=== PATIENT | female | born 1985 | race Caucasian/White ===

== ENCOUNTER 2016-11-16 19:24 | Emergency (ER) | payer OTHER ==
[2016-11-16] MEDS ORDERED: Aspirin Low Dose CHEW TAB* 81 MG PO ONE (22:17)
[2016-11-16 22:33] LABS: Hematocrit 40 % (35-47); Hemoglobin 13.2 g/dl (12.0-16.0); Mean Corpuscular HGB Conc 33 g/dl (31-36); Mean Corpuscular Hemoglobin 29 pg (27-31); Mean Corpuscular Volume 88 fL (80-97); Mean Platelet Volume 9 um3 (7.4-10.4); Red Blood Count 4.51 10^6/ul (4.0-5.4); Red Cell Distribution Width 13 % (10.5-15); White Blood Count 7.9 10^3/ul (3.5-10.8)
[2016-11-16 22:44] LABS: Albumin 4.6 g/dL (3.2-5.2); BUN/Creatinine Ratio 11.8 (8-20); Calcium 9.9 mg/dL (8.6-10.3); EGFR African American 128.2 (>60); EGFR Non-African American 99.6 (>60); Globulin 2.7 g/dL (2-4); Potassium 3.9 mmol/L (3.5-5.0); Total Bilirubin 0.4 mg/dL (0.2-1.0); Total Protein 7.3 g/dL (6.4-8.9)
[2016-11-17] MEDS ORDERED: methylPREDNISolone 125 MG* 2 ML VIAL IV ONE (01:22)
[2016-11-17] MEDS ORDERED: Albuterol 2.5 MG/3 ML NEB.SOL* (0.083%) INH ONE (01:22)
[2016-11-17 02:38] VITALS: BP 118/74
--- NOTE | 2016-11-17 07:38 | RAD ---
INDICATION: Cough, right lower lobe abnormal breath sounds. COMPARISON: Comparison is made with a prior chest x-ray study from May 22, 2016. TECHNIQUE: Dual-energy PA and lateral views of the chest were obtained. FINDINGS: The heart is within normal limits in size. Mediastinal and hilar contours appear within normal limits. The lungs are clear. No pleural effusion is present. IMPRESSION: NO EVIDENCE FOR ACTIVE CARDIOPULMONARY DISEASE.
--- NOTE | 2016-11-29 23:57 | ED ---
Elmo Sanchez SooYoung, scribed for Garry Lanza MD on 11/16/16 at 2219 . Palpitations / Dysrhythmia - HPI Summary HPI Summary: A 31 y/o F presents to ED with c/o acute on chronic episodes of chest palpitations throughout today. Associated mild SOB, mild midline CP, L-sided frontal FUENTES, mild dizziness, mild productive green cough, mild rhinorrhea. Pt recently had PNA with productive green cough. She took her 5-day course of ABX and was feeling better. Pt was seen at [facility] today who referred her to ED and gave her a 10-day course of Doxy. She had a CXR done there, and they said it was nml. Pert PMHx: abnormal EKG with PAC and PVC. Not on BC. Denies asthma. - History of Current Complaint Chief Complaint: EDDysrhythmPalp Time Seen by Provider: 11/16/16 22:14 Hx Obtained From: Patient, Family/Railway Engineer - cousin Onset/Duration: Still Present Character: Irregular Associated Signs & Symptoms: Dizzy - mild, Chest Pain, Shortness of Breath - mild - Allergy/Home Medications Allergies/Adverse Reactions: Allergies Allergy/AdvReac Type Severity Reaction Status Date / Time No Known Allergies Allergy Verified 05/22/16 21:24 PMH/Surg Hx/FS Hx/Imm Hx Previously Healthy: Yes Endocrine/Hematology History: Denies: Hx Diabetes, Hx Thyroid Disease Cardiovascular History: Denies: Hx Congestive Heart Failure, Hx Deep Vein Thrombosis, Hx Hypertension , Hx Myocardial Infarction, Hx Pacemaker/ICD Respiratory History: Denies: Hx Asthma, Hx Chronic Obstructive Pulmonary Disease (COPD), Hx Lung Cancer, Hx Pneumonia, Hx Pulmonary Embolism GI History: Denies: Hx Gall Bladder Disease, Hx Gastrointestinal Bleed, Hx Ulcer, Hx Urosepsis History: Denies: Hx Kidney Stones, Hx Renal Disease Neurological History: Denies: Hx Dementia, Hx Migraine, Hx Seizures, Hx Transient Ischemic Attacks (TIA) Psychiatric History: Denies: Hx Anxiety, Hx Depression, Hx Schizophrenia, Hx Bipolar Disorder - Cancer History Cancer Type, 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 Hx Chemotherapy: No Hx Radiation Therapy: No - Immunization History Date of Tetanus Vaccine: pt states doesnt know Date of Influenza Vaccine: 2011 Infectious Disease History: No Infectious Disease History: Denies: Hx Clostridium Difficile, Hx Hepatitis, Hx Human Immunodeficiency Virus (HIV), Hx of Known/Suspected MRSA, Hx Shingles, Hx Tuberculosis, Hx Known/ Suspected VRE, Hx Known/Suspected VRSA, History Other Infectious Disease, Traveled Outside the [place] in Last 30 Days - Family History Known Family History: Positive: Other - neg: family breast [place] - Social History 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 Negative: Sore Throat Positive: Palpitations, Chest Pain Positive: Shortness Of Breath - mild, Cough - mild, productive - green sputum Negative: Abdominal Pain, Vomiting, Nausea Negative: dysuria, hematuria Negative: Myalgia, Edema Negative: Rash Neurological: Other - pos: mild dizziness Positive: Headache - L frontal All Other Systems Reviewed And Are Negative: Yes Physical Exam - Summary Physical Exam Summary: Constitutional: Well-developed, Well-nourished, Alert. (-) Distressed Skin: Warm, Dry HENT: Normocephalic; Atraumatic Eyes: Conjunctiva normal Neck: Musculoskeletal ROM normal neck. (-) JVD, (-) Stridor, (-) Tracheal deviation Cardio: Rhythm regular, rate normal, Heart sounds normal; Intact distal pulses; The pedal pulses are 2+ and symmetric. Radial pulses are 2+ and symmetric. (-) Murmur Pulmonary/Chest wall: Effort normal. (-) Respiratory distress, RHONCHI R LOWER LOBE Abd: Soft, (-) Tenderness, (-) Distension, (-) Guarding, (-) Rebound Musculoskeletal: (-) Edema Lymph: (-) Cervical adenopathy Neuro: Alert, Oriented x3 Psych: Mood and affect Normal Triage Information Reviewed: Yes Vital Signs On Initial Exam: Initial Vitals Temp Pulse Resp BP Pulse Ox 98.4 F 79 16 101/60 99 11/16/16 19:40 11/16/16 19:40 11/16/16 19:40 11/16/16 19:40 11/16/16 19:40 Vital Signs Reviewed: Yes Diagnostics - Vital Signs Vital Signs Temp Pulse Resp BP Pulse Ox 11/16/16 19:40 98.4 F 79 16 101/60 99 - Laboratory Result Diagrams: 11/16/16 20:50 11/16/16 20:50 Lab Statement: Any lab studies that have been ordered have been reviewed, and results considered in the medical decision making process. - EKG 1 EKG Interpretation: T-WAVE INVERSION IN V4 AND V6. INFERIOR UNCHANGED SINCE PRIOR. Re-Evaluation - Re-Evaluation 1 Re-Evaluation Time: 02:17 Change: Improved Comment: Discussing results with pt. Course/Dx - Course Assessment/Plan: Pt is a 31 y/o F presenting with c/o acute on chronic episodes of chest palpitations throughout day. Associated sx: mild SOB, mild midline CP, L-sided frontal FUENTES, mild dizziness, mild productive green cough, mild rhinorrhea. PNA dx last week, completed her 5-day ABX treatment. Pt was seen at [facility] today who referred her to ED and gave her a 10-day course of Doxy. She had a nml CXR done there. Pert PMHx: abnormal EKG with PAC and PVC according to pt. No arrhythmia noted. Pt has had significant tachycardia with albuterol, pt declined albuterol treatment. Pt will be discharged home with robitussin/codeine and prednisone. - Diagnoses Provider Diagnoses: Bronchitis, Chest wall pain Discharge - Discharge Plan Condition: Stable Disposition: HOME Prescriptions: guaiFENesin/CODIEN 100MG-10MG* [Robitussin AC 100Mg-10Mg*] 5 ml PO BEDTIME PRN # 25 ml MDD 5 PRN Reason: Cough predniSONE TAB* [Deltasone TAB*] 40 mg PO DAILY #5 tab Patient Education Materials: Chest Wall Pain (ED), Prednisone (By mouth), Guaifenesin/Hydrocodone (By mouth), Acute Bronchitis (ED) Referrals: Negin Bales MD [Primary Care Provider] - 2 Days Additional Instructions: Follow up with your primary care physician in two days. Return to the emergency department for changing or worsening symptoms. The documentation as recorded by the Elmo tong SooYoung accurately reflects the service I personally performed and the decisions made by , Garry Lanza MD.
== END 2016-11-17 02:36 | disposition home or self-care (01) ==
LOC: ED 19:24
DX: J34.89 Other specified disorders of nose and nasal sinuses (principal); R07.89 Other chest pain; R06.02 Shortness of breath; R51 Headache; R42 Dizziness and giddiness; R05 Cough; J40 Bronchitis, not specified as acute or chronic
CPT/HCPCS: 36415; 71020; 80053; 85025; 93005; 99282; A9270-GY; J2930

== ENCOUNTER 2017-10-17 11:54 | Emergency (ER) | payer BC, OTHER ==
[2017-10-17 12:11] VITALS: BP 114/77
--- NOTE | 2017-10-17 12:24 | UC ---
Head Injury HPI - HPI Summary HPI Summary: fell down for stairs, no loc positive nausea vomiting and neck pain - History Of Current Complaint Hx Obtained From: Patient Hx Last Menstrual Period: 10/10/17 ?: No Mechanism Of Injury: fall Onset/Duration: Sudden Onset, Lasting Days - 1 Severity Currently: Mild Severity Initially: Mild Pain Intensity: 5 Pain Scale Used: 0-10 Numeric Character: Other Aggravating Factor(s): Nothing Alleviating Factor(s): Nothing Associated Signs And Symptoms: Positive: Negative <Jenn Albarran - Last Filed: 10/20/17 17:16> <Rachel Mills - Last Filed: 10/21/17 08:56> - History Of Current Complaint Chief Complaint: UCHeadInjury Stated Complaint: FALL INJURY Time Seen by Provider: 10/17/17 12:16 - Allergies/Home Medications Allergies/Adverse Reactions: Allergies Allergy/AdvReac Type Severity Reaction Status Date / Time No Known Allergies Allergy Verified 10/17/17 12:05 Home Medications: Home Medications Acetaminophen PED LIQ* [Tylenol PED LIQ UDC*] 10 ml 10/17/17 [History] PMH/Surg Hx/FS Hx/Imm Hx Previously Healthy: Yes - Surgical History Surgical History: None - Family History Known Family History: Positive: None, Other - neg: family breast [place] - Social History Occupation: Employed Full-time Lives: With Family Alcohol Use: None Substance Use Type: None Substance Use Comment - Amount & Last Used: 16 Smoking Status (MU): Current Some Day Smoker Type: Cigarettes Amount Used/How Often: 3/4 ppd Length of Time of Smoking/Using Tobacco: 16 years Have You Smoked in the Last Year: Yes - Immunization History Most Recent Influenza Vaccination: 2014/2015 <Jenn Albarran - Last Filed: 10/20/17 17:16> Review of Systems Constitutional: Negative Skin: Negative Eyes: Negative ENT: Negative Respiratory: Negative Cardiovascular: Negative Gastrointestinal: Nausea Genitourinary: Negative Motor: Negative Neurovascular: Negative Musculoskeletal: Arthralgia - neck pain c67 area. no pain with rom, no limitation in rom, n/m/ difficulties Neurological: Headache Psychological: Negative Is Patient Immunocompromised?: No All Other Systems Reviewed And Are Negative: Yes <Jenn Albarran - Last Filed: 10/20/17 17:16> Physical Exam Triage Information Reviewed: Yes Appearance: Well-Appearing, No Pain Distress, Well-Nourished Vital Signs: Initial Vital Signs Temp 98 F 10/17/17 12:06 Pulse 76 10/17/17 12:06 Resp 16 10/17/17 12:06 BP 114/77 10/17/17 12:06 Pulse Ox 100 10/17/17 12:06 Vital Signs Reviewed: Yes Eye Exam: Normal Eyes: Positive: Conjunctiva Clear ENT Exam: Normal ENT: Positive: Normal ENT inspection, Hearing grossly normal, Pharynx normal, TMs normal, Uvula midline. Negative: Nasal congestion, Nasal drainage, Tonsillar swelling, Tonsillar exudate, Trismus, Muffled voice, Hoarse voice, Dental tenderness Dental Exam: Normal Neck exam: Normal Neck: Positive: Supple, Nontender, No Lymphadenopathy Respiratory Exam: Normal Respiratory: Positive: Chest non-tender, Lungs clear, Normal breath sounds, No respiratory distress, No accessory muscle use Cardiovascular Exam: Normal Cardiovascular: Positive: RRR, No Murmur, Pulses Normal, Brisk Capillary Refill Musculoskeletal Exam: Normal Musculoskeletal: Positive: Strength Intact, ROM Intact, No Edema Neurological Exam: Normal Neurological: Positive: Alert, Muscle Tone Normal Psychological Exam: Normal Psychological: Positive: Normal Response To Family Skin Exam: Normal <Jenn Albarran - Last Filed: 10/20/17 17:16> Vital Signs: Initial Vital Signs Temp 98 F 10/17/17 12:06 Pulse 76 10/17/17 12:06 Resp 16 10/17/17 12:06 BP 114/77 10/17/17 12:06 Pulse Ox 100 10/17/17 12:06 <Rachel Mills - Last Filed: 10/21/17 08:56> Diagnostics - Radiology No standard instances Xray Interpretation: Positive (See Comments) - wnl except for 3mm hypoatt. area right thyroid Radiology Interpretation Completed By: Radiologist <Jenn Albarran - Last Filed: 10/20/17 17:16> Head Injury Course/Dx - Course Course Of Treatment: ice, heat for comfort , nsaids, muscle relaxer follow in next 1-week with pcp - Differential Dx/Diagnosis Provider Diagnoses: cervical contusion, thyroid hypoattenuation <Jenn Albarran - Last Filed: 10/20/17 17:16> Discharge <Jenn Albarran Last Filed: 10/20/17 17:16> <Rachel Mills - Last Filed: 10/21/17 08:56> - Discharge Plan Condition: Stable Disposition: HOME Patient Education Materials: Concussion (ED), Post Concussion Syndrome (ED) Forms: *Work Release Referrals: Geoff Flores MD [Medical Doctor] - If Needed Negin Bales MD [Primary Care Provider] - If Needed Attestation Statement User Type: Provider - I was available for consult. This patient was seen by the KARINE. The patient was not presented to, seen by, or examined by me. -Taz <Rachel Mills - Last Filed: 10/21/17 08:56> Addendum entered and electronically signed by Rachel Mills MD 10/21/17 08:56 : Addendum Addendum: I was available for consult. This patient was seen by the KARINE. The patient was not presented to, seen by, or examined by me. -Taz
--- NOTE | 2017-10-17 12:55 | RAD ---
indication: The patient fell down 4 stairs 2 days earlier striking the occipital on concrete and now presents with worsening headache. COMPARISON: None A CT scan of the brain and c-spine was performed without intravenous contrast enhancement. Contiguous axial sections were obtained from the lung apices through the vertex. BRAIN: The ventricles, cisterns and sulci are within normal limits. No significant focal abnormality or mass effect is seen. The gaviria-white differentiation is adequately maintained. There is no evidence for intracranial hemorrhage. No significant bony abnormality is present. The mastoid air cells are appropriately aerated. The visualized paranasal sinuses are clear. C-SPINE: On the sagittal view there is nonspecific straightening of the normal cervical lordosis. Otherwise the vertebral bodies and bilateral facet joints are correctly aligned. The dens is intact and the atlantoaxial interval is not widened. The intervertebral body heights are maintained. There is no hyperdense material in the cervical canal to indicate hemorrhage. The visualized musculature and soft tissues are normal. There is no gross lymphadenopathy visualized. In the right lobe of the thyroid there is a 3 mm hypoattenuating focus that cannot be characterized further on this CT examination. The visualized portion of the lung apices are clear. IMPRESSION: 1. No calvarial fracture or acute intracranial hemorrhage. 2. There is nonspecific straightening of the normal cervical lordosis which can be seen simply due to positioning or potentially muscle spasm without acute fracture or dislocation. 3. In the right lobe of the thyroid there is a 3 mm hypoattenuating focus that is unchanged from the May 23, 2016 CT examination.
== END 2017-10-17 13:25 | disposition home or self-care (01) ==
LOC: UCEAST 11:54
DX: S10.93XA Contusion of unspecified part of neck, initial encounter (principal); E07.9 Disorder of thyroid, unspecified; F17.210 Nicotine dependence, cigarettes, uncomplicated; W10.9XXA Fall (on) (from) unspecified stairs and steps, initial encounter; Y92.9 Unspecified place or not applicable
CPT/HCPCS: 70450; 72125; 99211; G0463

== ENCOUNTER 2017-12-02 08:19 | Emergency (ER) | payer BC ==
[2017-12-02 09:09] VITALS: BP 95/62
--- NOTE | 2017-12-02 09:15 | UC ---
Abdominal Pain Female HPI - HPI Summary HPI Summary: Patient presents with a past medical history of ovarian cysts. She presents today with complaints of abdominal pain that started last night after intercourse. She states the pain is in the lower abdomen and radiates up around the upper abdomen, and into her back. She states the pain is sharp and worse with movement. She states the pain waxes and wanes. She reports associated nausea, vomiting and diarrhea x 1, and rectal pressure. She states that prior to intercourse she felt well, and has not experienced any abnormal vaginal discharge or bleedings. Her last period was one month ago. She denies any fever, chills, chest pain, cough, sputum production, dysuria, hematuria, joint pain or rashes. - History of Current Complaint Chief Complaint: UCGI Stated Complaint: ABD PAIN VOMITING Time Seen by Provider: 12/02/17 08:30 Hx Obtained From: Patient Hx Last Menstrual Period: 4 WEEKS AGO Onset/Duration: Gradual Onset, Lasting Hours Timing: Constant Severity Initially: Severe Severity Currently: Moderate Pain Intensity: 5 Radiates: Yes Radiates to: Back Character: Sharp Aggravating Factor(s): Movement Alleviating Factor(s): Position Associated Signs and Symptoms: Positive: Back Pain, Vomiting, Diarrhea - Risk Factors Ectopic Risk Factor: Negative Ovarian Torsion Risk Factor: Reproductive Age Allergies/Adverse Reactions: Allergies Allergy/AdvReac Type Severity Reaction Status Date / Time No Known Allergies Allergy Verified 12/02/17 08:46 Home Medications: Home Medications NK [No Home Medications Reported] 12/02/17 [History Confirmed 12/02/17] PMH/Surg Hx/FS Hx/Imm Hx Previously Healthy: Yes - Surgical History Surgical History: Yes Surgery Procedure, Year, and Place: 2015 - SURGERY FOR SKIN CANCER REMOVAL ON RIGHT LEG - Family History Known Family History: Positive: None, Other - neg: family breast [place] Family History: R & n/C - Social History Lives: With Family Alcohol Use: None Substance Use Type: None Substance Use Comment - Amount & Last Used: 16 Smoking Status (MU): Former Smoker Type: Cigarettes Amount Used/How Often: QUIT 6 MONTHS AGO Length of Time of Smoking/Using Tobacco: 16 years Have You Smoked in the Last Year: Yes - Immunization History Most Recent Influenza Vaccination: Review of Systems Constitutional: Negative Skin: Negative Eyes: Negative ENT: Negative Respiratory: Negative Cardiovascular: Negative Gastrointestinal: Abdominal Pain Genitourinary: Negative Motor: Negative Neurovascular: Negative Musculoskeletal: Negative Neurological: Negative Psychological: Negative Is Patient Immunocompromised?: No All Other Systems Reviewed And Are Negative: Yes Physical Exam Triage Information Reviewed: Yes Appearance: No Pain Distress Vital Signs: Initial Vital Signs Temp 97.1 F 12/02/17 08:46 Pulse 80 12/02/17 08:46 Resp 16 12/02/17 08:46 BP 83/63 12/02/17 08:46 Pulse Ox 100 12/02/17 08:46 Vital Signs Reviewed: Yes Eye Exam: Normal ENT Exam: Normal Neck exam: Normal Neck: Positive: Supple, Nontender Respiratory Exam: Normal Respiratory: Positive: Lungs clear, Normal breath sounds, No respiratory distress, No accessory muscle use Cardiovascular Exam: Normal Cardiovascular: Positive: RRR Abdominal Exam: Normal Abdomen Description: Positive: Guarding, Other: - pain on palpation of the suprapubic abdomen, with rebound and gurading presents. Musculoskeletal Exam: Normal Neurological Exam: Normal Psychological Exam: Normal Skin Exam: Normal Abd Pain Female Course/Dx - Course Course Of Treatment: Patient presents with sudden onset of abdominal pain, VS were obtained and recorded as BP 83/63, T-97.1, P-80,R16, O2 sat 100%. She did not have a toxic appearance, and I think the slighlty low BP is related to the episode of vomiting and diarrhea. She was accompanied by her . Based on her past medical history, current clinical findings of acute abdominal pain DDX include ovarian cysts, ovarian torsion, kidney stone, or other abdominal patholgy what required emergent evaluation that cannot be performed here. A ua was obtained and was negative for , there was hematuria present but no infectious processes. She was told to go driectly to the ER, and she preferred her drive her. She was discharged in stable condition. - Differential Dx/Diagnosis Differential Diagnosis: Appendicitis, Ovarian Cyst, Renal Colic Provider Diagnoses: ovarian cysts. ovarian torsion. appendicitis. kidney stone Discharge - Discharge Plan Condition: Stable Disposition: OTHER Discharge Disposition Comment: patient was told to go directly to the ER. Patient Education Materials: Acute Abdominal Pain (ED) Referrals: Negin Bales MD [Primary Care Provider] - Additional Instructions: Go directly to the emergency department for further evaluation.
== END 2017-12-02 09:15 ==
LOC: UCEAST 08:19
DX: N83.209 Unspecified ovarian cyst, unspecified side (principal); N83.519 Torsion of ovary and ovarian pedicle, unspecified side; K37 Unspecified appendicitis; N20.0 Calculus of kidney; Z85.828 Personal history of other malignant neoplasm of skin; Z87.891 Personal history of nicotine dependence
CPT/HCPCS: 81003; 99211; G0463

== ENCOUNTER 2017-12-02 09:58 | Emergency (ER) | payer BC ==
[2017-12-02] MEDS ORDERED: Ketorolac INJ* 30 MG/ML 1 ML VIAL IV PUSH ONE (11:08)
[2017-12-02] MEDS ORDERED: Ondansetron INJ* 2 MG/ML VIAL IV ONE (11:08)
[2017-12-02] MEDS ORDERED: NS 0.9% 1000 ML* 1,000 ML IV ONE (11:08)
--- NOTE | 2017-12-02 11:09 | ED ---
Abdominal Pain/Female - HPI Summary HPI Summary: Patient is an otherwise healthy 32-year-old female coming from [facility] with a chief complaint of bilateral lower quadrant pain, one episode of emesis and one episode diarrhea this morning. She states she was fine yesterday with no pain or concerns. After receiving vaginal intercourse, she began to have lower abdominal cramping which has been intermittent, 9 out of 10, sometimes sharp and stabbing, radiating to the back, without vaginal bleeding or discharge. Denies chance of or chance of STDs. She began with emesis and diarrhea this morning but has not had that since. She is feeling improved since arrival. History of ovarian cysts without ovarian torsion or ruptures. She has had 3 vaginal births with no complications. Denies recent illness, including upper respiratory infections, sweats, chills, fevers. She has not taken anything for the pain. She is eating and drinking well. - History of Current Complaint Chief Complaint: EDAbdRobertin Stated Complaint: ABD PAIN, COMING FROM Time Seen by Provider: 12/02/17 10:50 Hx Obtained From: Patient Hx Last Menstrual Period: 4 WEEKS AGO ?: No Onset/Duration: Sudden Onset Timing: Constant Severity Initially: Moderate Severity Currently: Moderate Pain Intensity: 5 Pain Scale Used: 0-10 Numeric Location: Diffuse - Left lower quadrant and right lower quadrant Radiates: Yes Radiates to: Back Character: Sharp, Cramping Aggravating Factor(s): Nothing Alleviating Factor(s): Nothing Associated Signs and Symptoms: Positive: Nausea, Vomiting, Diarrhea. Negative: Constipation, Blood in Stool, Urinary Symptoms, Vaginal Bleeding, Vaginal Discharge - Risk Factors Ectopic Risk Factor: Maternal Age ^ 30 Ovarian Torsion Risk Factor: Ovarian Cysts/Tumors Allergies/Adverse Reactions: Allergies Allergy/AdvReac Type Severity Reaction Status Date / Time No Known Allergies Allergy Verified 12/02/17 08:46 PMH/Surg Hx/FS Hx/Imm Hx Previously Healthy: Yes Endocrine/Hematology History: Denies: Hx Diabetes, Hx Thyroid Disease Cardiovascular History: Denies: Hx Congestive Heart Failure, Hx Deep Vein Thrombosis, Hx Hypertension , Hx Myocardial Infarction, Hx Pacemaker/ICD Respiratory History: Denies: Hx Asthma, Hx Chronic Obstructive Pulmonary Disease (COPD), Hx Lung Cancer, Hx Pneumonia, Hx Pulmonary Embolism GI History: Denies: Hx Gall Bladder Disease, Hx Gastrointestinal Bleed, Hx Ulcer, Hx Urosepsis History: Denies: Hx Kidney Stones, Hx Renal Disease Neurological History: Denies: Hx Dementia, Hx Migraine, Hx Seizures, Hx Transient Ischemic Attacks (TIA) Psychiatric History: Denies: Hx Anxiety, Hx Depression, Hx Schizophrenia, Hx Bipolar Disorder - Cancer History Cancer Type, Location and Year: skin CA on leg Hx Chemotherapy: No Hx Radiation Therapy: No - Surgical History Surgery Procedure, Year, and Place: 2016 - SURGERY FOR SKIN CANCER REMOVAL ON RIGHT LEG - Immunization History Date of Tetanus Vaccine: pt states doesnt know Date of Influenza Vaccine: 2011 Hx Pertussis Vaccination: No Immunizations Up to Date: Unable to Obtain/Confirm Infectious Disease History: No Infectious Disease History: Denies: Hx Clostridium Difficile, Hx Hepatitis, Hx Human Immunodeficiency Virus (HIV), Hx of Known/Suspected MRSA, Hx Shingles, Hx Tuberculosis, Hx Known/ Suspected VRE, Hx Known/Suspected VRSA, History Other Infectious Disease, Traveled Outside the [place] in Last 30 Days - Family History Known Family History: Positive: None, Other - neg: family breast CA Family History: R & n/C - Social History Occupation: Employed Full-time Lives: With Family Alcohol Use: None Hx Substance Use: No Substance Use Type: Reports: None Substance Use Comment - Amount & Last Used: 16 Hx Tobacco Use: Yes Smoking Status (MU): Former Smoker Type: Cigarettes Amount Used/How Often: QUIT 6 MONTHS AGO Length of Time of Smoking/Using Tobacco: 16 years Have You Smoked in the Last Year: Yes Review of Systems - ROS Summary Review of Systems Summary: Constitutional: The patient denies fever, FUENTES, sweats or chills. HEENT: Head: The patient denies headaches or dizziness. Eyes: The patient denies diplopia, blurry vision, eye pain, eye discharge, photophobia. Throat: The patient denies sore throats or hoarseness. Cardiovascular: The patient denies chest pain, palpitations, syncope, night cramps, or orthostasis. Respiratory: The patient denies cough, sputum production, hemoptysis, dyspnea, wheezing. Gastrointestinal: The patient denies odynophagia, dysphagia, hematemesis, melenemesis. Endorses lower bilateral abdominal pain, nausea and vomiting 1. Endorses lower suprapubic pelvic pressure. Denies constipation, endorses diarrhea. Genitourinary: Patient denies dysuria, hematuria, or pyuria. Patient denies back pain. Denies vaginal discharge, vaginal bleeding. Denies other urinary symptoms. Muscles: The patient denies myalgia, strain or weakness. Joints: The patient denies arthralgia and/or arthritis. Neurologic: The patient denies headache, loss of consciousness, or seizure. Constitutional: Negative Negative: Fever, Chills, Fatigue Eyes: Negative Cardiovascular: Negative Positive: Abdominal Pain, Vomiting, Diarrhea, Nausea Genitourinary: Negative Positive: no symptoms reported, see HPI Musculoskeletal: Negative Neurological: Negative All Other Systems Reviewed And Are Negative: Yes Physical Exam - Summary Physical Exam Summary: Appearance: WDW, comfortable, pleasant, alert Skin: Soft dry skin, no lesions. Nailbeds pink with no cyanosis or clubbing. No petechia noted. Eyes: VERONICA, EOMI, Conjunctiva pink with no redness or exudates. Mouth: Dentition without lesions. Moist mucosa Neck: Full range of motion. Palpable thyroid. Trachea at midline. No lymphadenopathy. Pulm: Chest symmetrical expansion. No deformities on posterior chest wall. Lungs clear to auscultation and percussion, without adventitious sounds. CV: No JVD. No deformities on anterior chest wall. Heart sounds. RRR. Normal S1 and single S2. No S3, S4, rubs, or murmurs. Carotids 2+ bilaterally without bruits. . exam not performed GI: Bowel sounds WNL in all 4 quadrants. Pain in left and right lower quadrants. Negative gabriel's, negative obturator. Psoas not performed. Musculoskeletal: Flexion and extension of neck without limitations. ROM WNL in all extremities. No deformities noted. Pulses +2 bilaterally. Neuro: Motor strength is 5/5 in upper and lower extremities bilaterally. A&OX3 Psych: Logical, coherent Triage Information Reviewed: Yes Vital Signs On Initial Exam: Initial Vitals Temp Pulse Resp BP Pulse Ox 97.8 F 79 16 145/121 100 12/02/17 10:25 12/02/17 10:25 12/02/17 10:25 12/02/17 10:12/02/17 10:25 Vital Signs Reviewed: Yes Appearance: Positive: Well-Appearing, Well-Nourished Skin: Positive: Warm, Skin Color Reflects Adequate Perfusion Head/Face: Positive: Normal Head/Face Inspection Eyes: Positive: EOMI, VERONICA, Conjunctiva Clear Neck: Positive: Supple, No Lymphadenopathy Respiratory/Lung Sounds: Positive: Clear to Auscultation, Breath Sounds Present Cardiovascular: Positive: Pulses are Symmetrical in both Upper and Lower Extremities Abdomen Description: Positive: Soft, Other: - Tenderness to the left and right lower quadrants. Bowel Sounds: Positive: Present Musculoskeletal: Positive: Normal, Strength/ROM Intact Neurological: Positive: Speech Normal Psychiatric: Positive: Normal, Affect/Mood Appropriate Diagnostics - Vital Signs Vital Signs Temp Pulse Resp BP Pulse Ox 12/02/17 10:25 97.8 F 79 16 145/121 100 - Laboratory Result Diagrams: 12/02/17 11:34 12/02/17 11:34 Lab Statement: Any lab studies that have been ordered have been reviewed, and results considered in the medical decision making process. Abdominal Pain Fem Course/Dx - Course Course Of Treatment: During the course of treatment, the patient is evaluated for acute lower abdominal pain bilaterally which radiates to the bilateral flanks. The pain came on suddenly after intercourse and has remained. Denies any vaginal discharge, UA obtained at [facility] with 3+ RBCs with no infection. The pain has been intermittent, radiating to the back, sharp and bilateral lower quadrants with concern for hemorrhagic or ruptured ovarian cyst versus ovarian torsion. Ultrasound obtained which shows: IMPRESSION: There is a large amount of echogenic free fluid in the pelvis in the presence. of an echogenic right ovarian follicle possibly representing rupture of a hemorrhagic. follicle. Considering the volume and echogenicity of the free fluid in the pelvis and. infectious etiology should be considered as well. Discussed treatment options with patient. Toradol and Zofran is given in the ED with relief. I have advised due to her vital signs developed he and feeling improved we are able to discharge her at this time with close observation and close follow-up with [facility] early next week. I have discussed complications that could arise from a ruptured ovarian cyst and she will need to be followed possibly have more subsequent tests done. She is okay with this plan. I have given her tramadol for some pain relief and she will return for any worsening symptoms, fevers or vaginal bleeding. - Diagnoses Provider Diagnoses: Ruptured ovarian cyst - Provider Notifications Instructed by Provider To: Have Pt Call For Appt. - [facility] Discharge - Discharge Plan Condition: Stable Disposition: HOME Prescriptions: Ondansetron ODT TAB* [Zofran 4 MG Odt TAB*] 4 mg PO Q6H PRN #12 tab.odt MDD 4 PRN Reason: Nausea traMADol TAB* [Ultram*] 50 mg PO Q8H PRN #9 tab MDD 3 PRN Reason: Pain Patient Education Materials: Ruptured Ovarian Cyst (ED) Referrals: Negin Bales MD [Primary Care Provider] - Additional Instructions: You are diagnosed with a ruptured ovarian cyst This is an uncomplicated rupture, and I recommend pain management. If you develop any dizziness, lightheadedness or increased pain please return to the ED. Symptoms should resolve within a few days I recommend follow-up with [facility] early this week to further assess any remaining cysts or complications from the rupture. Tramadol is given for pain control Zofran for any nausea
[2017-12-02 11:42] LABS: ABS Basophils 0 10^3/ul (0-0.2); ABS Eosinophils 0 10^3/ul (0-0.6); ABS Lymphocytes 1.1 10^3/ul (1.0-4.8); ABS Monocytes 0.3 10^3/ul (0-0.8); ABS Neutrophils 6.4 10^3/ul (1.5-7.7); ABS Nucleated RBC 0 10^3/ul; Eosinophil % 0.1 % (0-6); Hematocrit 36 % (35-47); Lymphocyte % 13.7 % (25-47); Mean Corpuscular HGB Conc 34 g/dl (31-36); Mean Corpuscular Hemoglobin 30 pg (27-31); Mean Corpuscular Volume 89 fL (80-97); Mean Platelet Volume 8 um3 (7.4-10.4); Nucleated Red Blood Cells % 0; Platelet Count 231 10^3/ul (150-450); Red Blood Count 3.99 10^6/ul (4.0-5.4); Red Cell Distribution Width 13 % (10.5-15); White Blood Count 7.8 10^3/ul (3.5-10.8)
[2017-12-02 11:57] LABS: EGFR Non-African American 112.3 (>60)
[2017-12-02 12:58] LABS: Urine Appearance Clear; Urine Blood 1+ (Negative); Urine Color Yellow; Urine Ketones 1+ (Negative); Urine Protein Negative (Negative); Urine Specific Gravity 1.009 (1.010-1.030); Urine Urobilinogen Negative (Negative)
--- NOTE | 2017-12-02 13:17 | RAD ---
INDICATION: Pelvic pain COMPARISON: CT dated August 10, 2013 TECHNIQUE: Real-time transabdominal and transvaginal ultrasound examination of the female pelvis including grayscale and Doppler color flow imaging. FINDINGS: Uterus: The uterus is normal in size and echogenicity measuring 9.7 x 5.8 x 7.0 cm. The endometrial stripe is smooth and uniform measuring 18 mm in thickness. Ovaries: The right and left ovary measure 3.4 x 3.7 x 4.8 cm and 2.3 x 2.3 x 2.9 cm, respectively. Normal arterial and venous waveforms are identified. Within the right ovary there is an echogenic and avascular structure measuring 3.2 cm in greatest dimension. There is large amount of free echogenic fluid in the cul-de-sac. IMPRESSION: There is a large amount of echogenic free fluid in the pelvis in the presence of an echogenic right ovarian follicle possibly representing rupture of a hemorrhagic follicle. Considering the volume and echogenicity of the free fluid in the pelvis and infectious etiology should be considered as well.
[2017-12-02 13:48] VITALS: BP 98/61
== END 2017-12-02 13:46 | disposition home or self-care (01) ==
LOC: ED 09:58
DX: N83.291 Other ovarian cyst, right side (principal); Z85.828 Personal history of other malignant neoplasm of skin; Z87.891 Personal history of nicotine dependence
CPT/HCPCS: 36415; 76830; 80053; 81003; 81015; 83605; 84702; 85025; 96360; 96374; 96375; 99283; J1885; J2405

== ENCOUNTER 2018-05-19 12:06 | Emergency (ER) | payer BC ==
[2018-05-19 12:19] VITALS: BP 97/65
--- NOTE | 2018-05-19 12:41 | UC ---
Ear Complaint HPI - HPI Summary HPI Summary: has had ear fullness for several days, now has decreased hearing nad pain going done side of neck from ear. has allergies but not on meds now. no recent URI - History of Current Complaint Chief Complaint: UCEar Stated Complaint: PRESSURE IN BOTH EARS Time Seen by Provider: 05/19/18 12:28 Hx Obtained From: Patient Hx Last Menstrual Period: 05/14/18 ?: No Onset/Duration: Gradual Onset Severity Initially: Mild Severity Currently: Moderate Pain Intensity: 5 Aggravating Factors: Nothing Alleviating Factors: Nothing Associated Signs/Symptoms: Positive: Hearing Loss Related History: Seasonal Allergies - Allergies/Home Medications Allergies/Adverse Reactions: Allergies Allergy/AdvReac Type Severity Reaction Status Date / Time Penicillins Allergy Mild tolerated Verified 05/19/18 12:19 Home Medications: Home Medications NK [No Home Medications Reported] 05/19/18 [History Confirmed 05/19/18] PMH/Surg Hx/FS Hx/Imm Hx Previously Healthy: Yes - Surgical History Surgical History: Yes Surgery Procedure, Year, and Place: 2015 - SURGERY FOR SKIN CANCER REMOVAL ON RIGHT LEG - Family History Known Family History: Positive: None, Other - neg: family breast CA Family History: R & n/C - Social History Occupation: Employed Part-time Lives: With Family Alcohol Use: Rare Substance Use Type: None Substance Use Comment - Amount & Last Used: 16 Smoking Status (MU): Light Every Day Tobacco Smoker Type: Cigarettes Amount Used/How Often: QUIT 6 MONTHS AGO Length of Time of Smoking/Using Tobacco: 16 years Have You Smoked in the Last Year: Yes - Immunization History Most Recent Influenza Vaccination: Review of Systems Constitutional: Negative Skin: Negative ENT: Ear Ache Respiratory: Negative Cardiovascular: Negative Neurological: Negative Psychological: Negative All Other Systems Reviewed And Are Negative: Yes Physical Exam Triage Information Reviewed: Yes Appearance: Well-Appearing, No Pain Distress, Well-Nourished Vital Signs: Initial Vital Signs Temp 98.1 F 05/19/18 12:15 Pulse 79 05/19/18 12:15 Resp 18 05/19/18 12:15 BP 97/65 05/19/18 12:15 Pulse Ox 100 05/19/18 12:15 Vital Signs Reviewed: Yes Eye Exam: Normal Eyes: Positive: Conjunctiva Clear ENT: Positive: Pharynx normal, TMs normal - but retracted. Negative: Nasal congestion, Sinus tenderness Neck exam: Normal Neck: Positive: Supple, Nontender, No Lymphadenopathy Respiratory Exam: Normal Cardiovascular Exam: Normal Neurological Exam: Normal Psychological Exam: Normal Skin Exam: Normal Ear Complaint Course/Dx - Differential Dx/Diagnosis Differential Diagnosis/HQI/PQRI: Cerumen Impaction, Foreign Body, Otitis Externa , Otitis Media, URI Provider Diagnoses: eustachian tube dysfunction Discharge - Sign-Out/Discharge Documenting (check all that apply): Patient Departure - Discharge Plan Condition: Good Disposition: HOME Patient Education Materials: Earache (ED) Referrals: Negin Bales MD [Primary Care Provider] - 2 Days (if no better) Additional Instructions: use sudafed (from behind the counter) as directed may also use nasal steroid spray (Flonase or Nasonex) - Billing Disposition and Condition Condition: GOOD Disposition: Home
== END 2018-05-19 12:44 | disposition home or self-care (01) ==
LOC: UCEAST 12:06
DX: H69.80 Other specified disorders of Eustachian tube, unspecified ear (principal); Z88.0 Allergy status to penicillin; Z87.891 Personal history of nicotine dependence
CPT/HCPCS: 99211; G0463

== ENCOUNTER 2018-06-13 11:47 | Emergency (ER) | payer BC ==
[2018-06-13 12:00] VITALS: BP 107/71
--- NOTE | 2018-06-13 12:15 | UC ---
Ear Complaint HPI - HPI Summary HPI Summary: This is scribe Ed Ayesha documenting for attending Dr. Juan Cartwright. 33 y/o female presents to Urgent Care c/o constant bilateral ear pain - R worse than L lasting several days. Pain aggravated by pushing on ear. Pain radiates to the R side jaw. Pt states that "it feels like her ears are underwater". Associated sx: mild sore throat, sinus congestion. Pt seen at Urgent Care for the same sx 2 weeks ago. Sx resolved with medication (Flonase and Sudafed) but reappeared days ago. I, Dr. Osborne, personally performed the services described in this documentation as scribed in my presence and it is both accurate and complete. - History of Current Complaint Chief Complaint: UCEar Stated Complaint: EAR PAIN Time Seen by Provider: 06/13/18 12:12 Hx Obtained From: Patient Hx Last Menstrual Period: 05/12/18 Onset/Duration: Lasting Days, Still Present Pain Intensity: 5 Pain Scale Used: 0-10 Numeric Aggravating Factors: Other - pushing on the ear Alleviating Factors: Nothing - Allergies/Home Medications Allergies/Adverse Reactions: Allergies Allergy/AdvReac Type Severity Reaction Status Date / Time Penicillins Allergy Mild tolerated Verified 06/13/18 12:01 Home Medications: Home Medications Fluticasone NASAL SPRAY 50MCG* [Flonase NASAL SPRAY 50MCG*] 1 spray BOTH NARES DAILY 06/13/18 [History Confirmed 06/13/18] Pseudoephedrine HCl [Sudafed] 30 mg PO DAILY 06/13/18 [History Confirmed ] PMH/Surg Hx/FS Hx/Imm Hx Previously Healthy: Yes Cardiovascular History: Other Other Cardiovascular History: Arrythmia Neurological History: Other Other Neurological History: Numbness in both arms - Surgical History Surgical History: Yes Surgery Procedure, Year, and Place: 2016 - SURGERY FOR SKIN CANCER REMOVAL ON RIGHT LEG - Family History Known Family History: Positive: Other - neg: family breast CA - Social History Alcohol Use: Rare Substance Use Type: None Substance Use Comment - Amount & Last Used: 16 Smoking Status (MU): Light Every Day Tobacco Smoker Type: Cigarettes Amount Used/How Often: QUIT 6 MONTHS AGO Length of Time of Smoking/Using Tobacco: 16 years Have You Smoked in the Last Year: Yes - Immunization History Most Recent Influenza Vaccination: Review of Systems Constitutional: Negative Skin: Negative Eyes: Negative ENT: Sore Throat, Ear Ache, Sinus Congestion Respiratory: Negative Cardiovascular: Negative Gastrointestinal: Negative Genitourinary: Negative Motor: Negative Neurovascular: Negative Musculoskeletal: Negative Neurological: Negative Psychological: Negative All Other Systems Reviewed And Are Negative: Yes Physical Exam Triage Information Reviewed: Yes Appearance: Well-Appearing, No Pain Distress Vital Signs: Initial Vital Signs Temp 98 F 06/13/18 11:55 Pulse 78 06/13/18 11:55 Resp 16 06/13/18 11:55 BP 107/71 06/13/18 11:55 Pulse Ox 100 06/13/18 11:55 Vital Signs Reviewed: Yes ENT: Positive: Other - TTP R tragus. Positive rhinorrhea. Neck: Positive: Supple, Nontender Respiratory: Positive: Lungs clear, Normal breath sounds Cardiovascular: Positive: RRR Abdomen Description: Positive: Nontender, Soft Bowel Sounds: Positive: Present Musculoskeletal: Positive: Strength Intact, ROM Intact Neurological: Positive: Alert Psychological: Positive: Age Appropriate Behavior Skin Exam: Normal Ear Complaint Course/Dx - Course Course Of Treatment: RX AUGMENTIN IN ADDITION TO CORTISPORN OTIC DUE TO UNABLE TO VISUALIZE THE TM. F/U PMD IF NOT IMPROVED; RECHECK SOONER IF WORSE. - Differential Dx/Diagnosis Provider Diagnoses: RIGHT OTITIS EXTERNA Discharge - Sign-Out/Discharge Documenting (check all that apply): Patient Departure - Discharge Plan Condition: Stable Disposition: HOME Prescriptions: Amoxicillin/Clavulanate TAB* [Augmentin TAB 875*] 875 mg PO BID #20 tab Neomyc/Polym/HC 1% OTIC SUSP* [Cortisporin Otic Susp 1%*] 4 drop RIGHT EAR QID # 1 btl Patient Education Materials: Sinusitis (ED), Otitis Externa (ED) Referrals: Negin Bales MD [Primary Care Provider] - Additional Instructions: FOLLOW UP WITH YOUR DOCTOR IF NOT COMPLETELY IMPROVED. GET RECHECKED FOR ANY WORSENING OF YOUR CONDITION OR QUESTIONS OR CONCERNS. - Billing Disposition and Condition Condition: STABLE Disposition: Home
== END 2018-06-13 12:35 | disposition home or self-care (01) ==
LOC: UCEAST 11:47
DX: H60.91 Unspecified otitis externa, right ear (principal); Z88.0 Allergy status to penicillin; Z87.891 Personal history of nicotine dependence
CPT/HCPCS: 99212; G0463

== ENCOUNTER 2018-12-13 09:14 | Emergency (ER) | payer BC ==
[2018-12-13 09:49] VITALS: BP 99/72
[2018-12-13] MEDS ORDERED: Ondansetron ODT TAB* 4 MG PO ONE (11:28)
--- NOTE | 2018-12-13 11:33 | UC ---
FLU HPI - HPI Summary HPI Summary: 3 DAYS OF FATIGUE, BODY ACHES, NAUSEA AND MILD COUGH. HAD FEVER 101 INITIALLY BUT NONE TODAY. UTD FLU SHOT. - History of Current Complaint Chief Complaint: UCGeneralIllness Stated Complaint: GI ISSUES Time Seen by Provider: 12/13/18 11:15 Hx Obtained From: Patient Hx Last Menstrual Period: 11/29/18 Onset/Duration: Gradual Onset, Lasting Days, Still Present Severity Currently: Moderate Severity Initially: Moderate Pain Intensity: 3 Pain Scale Used: 0-10 Numeric Associated Signs & Symptoms: Positive: Fever, Myalgia, Cough, Headache, Vomiting - Allergy/Home Medications Allergies/Adverse Reactions: Allergies Allergy/AdvReac Type Severity Reaction Status Date / Time Penicillins Allergy Mild tolerated Verified 12/13/18 09:49 PMH/Surg Hx/FS Hx/Imm Hx Cardiovascular History: Cardiac Disease - "ARRYTHMIA" Other Cancer History: SKIN CANCER - Surgical History Surgical History: Yes Surgery Procedure, Year, and Place: 2015 - SURGERY FOR SKIN CANCER REMOVAL ON RIGHT LEG - Family History Known Family History: Positive: None, Other - neg: family breast CA - Social History Alcohol Use: Rare Substance Use Type: None Substance Use Comment - Amount & Last Used: 16 Smoking Status (MU): Light Every Day Tobacco Smoker Type: Cigarettes Amount Used/How Often: QUIT 6 MONTHS AGO Length of Time of Smoking/Using Tobacco: 16 years Have You Smoked in the Last Year: Yes - Immunization History Most Recent Influenza Vaccination: Review of Systems All Other Systems Reviewed And Are Negative: Yes Constitutional: Positive: Fever, Fatigue Eyes: Positive: Negative Respiratory: Positive: Cough Cardiovascular: Positive: Negative Gastrointestinal: Positive: Vomiting, Nausea. Negative: Diarrhea Genitourinary: Positive: Negative Musculoskeletal: Positive: Myalgia Physical Exam Triage Information Reviewed: Yes Appearance: No Pain Distress, Well-Nourished, Ill-Appearing - SEEMS FATIGUED Vital Signs: Initial Vital Signs Temp 98.6 F 12/13/18 09:46 Pulse 78 12/13/18 09:46 Resp 17 12/13/18 09:46 BP 99/72 12/13/18 09:46 Pulse Ox 100 12/13/18 09:46 Laboratory Tests 12/13/18 11:34 Influenza A (Rapid) Negative Influenza B (Rapid) Negative Vital Signs Reviewed: Yes Eyes: Positive: Conjunctiva Clear ENT: Positive: Hearing grossly normal, Pharynx normal, TMs normal Neck: Positive: Supple, Nontender, No Lymphadenopathy Respiratory Exam: Normal Cardiovascular Exam: Normal Abdomen Description: Positive: Soft, Other: - DIFFUSE MILD TENDERNESS. NO REBOUND OR RIGIDITY. Negative: CVA Tenderness (R), CVA Tenderness (L), Distended, Guarding Bowel Sounds: Positive: Present Musculoskeletal: Positive: No Edema Neurological: Positive: Alert Psychological: Positive: Age Appropriate Behavior Skin: Negative: Rashes Flu Course/Dx - Differential Dx/Diagnosis Provider Diagnosis: Acute viral syndrome Discharge - Sign-Out/Discharge Documenting (check all that apply): Patient Departure All imaging exams completed and their final reports reviewed: No Studies - Discharge Plan Condition: Stable Disposition: HOME Prescriptions: Ondansetron ODT TAB* [Zofran Odt TAB*] 4 mg PO Q6H PRN #20 tab.odt PRN Reason: Nausea/Vomiting Patient Education Materials: Viral Syndrome (ED) Referrals: Negin Bales MD [Primary Care Provider] - If Needed Additional Instructions: FLU SWAB NEGATIVE. YOUR SYMPTOMS ARE STILL LIKELY VIRALLY MEDIATED AND SHOULD RESOLVE ON THEIR OWN WITH TIME. NO INDICATION FOR ANTIBIOTICS AT PRESENT. REST, HYDRATE, OTC MEDS NEEDED. SEEK FOLLOW-UP IF YOU ARE NOT IMPROVING OVER THE NEXT 1-2 WEEKS. ENSURE ADEQUATE HYDRATION. CLEAR LIQUIDS, BLAND DIET. AVOID CAFFEINE, DAIRY, GREASY, SPICY FOODS. ONCE YOU ARE TOLERATING CLEAR LIQUIDS YOU CAN ADVANCE TO SIMPLE, BLAND FOODS. - Billing Disposition and Condition Condition: STABLE Disposition: Home
[2018-12-13 11:45] LABS: Influenza A Molecular NEGATIVE (Negative); Influenza B Molecular NEGATIVE (Negative)
== END 2018-12-13 12:04 | disposition home or self-care (01) ==
LOC: UCEAST 09:14
DX: B34.9 Viral infection, unspecified (principal); Z88.0 Allergy status to penicillin; F17.210 Nicotine dependence, cigarettes, uncomplicated
CPT/HCPCS: 99211; A9270-GY; G0463

== ENCOUNTER 2019-08-16 10:20 | Emergency (ER) | payer BC ==
[2019-08-16 10:27] VITALS: BP 107/72
--- NOTE | 2019-08-16 10:53 | UC ---
Throat Pain/Nasal Noble HPI - HPI Summary HPI Summary: The patient is a 34-year-old female who has been plagued by allergic rhinitis for 2-3 weeks. Initially she was using a steroid nasal spray but ran out of it. Her symptoms have progressively worsened and have included postnasal drip as well as bilateral earache and nasal congestion. For the past 5 days she has had a cough that seems to be down in her chest. She has right greater than left ear pain. She has facial pressure and pain as well as upper gum sensitivity and pain. - History of Current Complaint Chief Complaint: UCGeneralIllness Stated Complaint: POSS FLU FEVERX2 Time Seen by Provider: 08/16/19 10:32 Hx Obtained From: Patient Hx Last Menstrual Period: 07/18/19 Onset/Duration: Gradual Onset, Lasting Weeks Severity: Mild Pain Intensity: 3 Cough: Nonproductive Associated Signs & Symptoms: Positive: Sinus Discomfort, Nasal Discharge - Epiglottits Risk Factors Epiglottis Risk Factors: Negative - Allergies/Home Medications Allergies/Adverse Reactions: Allergies Allergy/AdvReac Type Severity Reaction Status Date / Time Penicillins AdvReac Mild GI Upset Verified 08/16/19 10:45 PMH/Surg Hx/FS Hx/Imm Hx Previously Healthy: Yes - Surgical History Surgical History: Yes Surgery Procedure, Year, and Place: 2016 - SURGERY FOR SKIN CANCER REMOVAL ON RIGHT LEG - Family History Known Family History: Positive: Hypertension, Other - neg: family breast [place] - Social History Alcohol Use: Rare Substance Use Type: None Substance Use Comment - Amount & Last Used: 16 Smoking Status (MU): Light Every Day Tobacco Smoker Type: Cigarettes Amount Used/How Often: QUIT 6 MONTHS AGO Length of Time of Smoking/Using Tobacco: 16 years Have You Smoked in the Last Year: Yes - Immunization History Most Recent Influenza Vaccination: Review of Systems All Other Systems Reviewed And Are Negative: Yes Constitutional: Positive: Fatigue Skin: Positive: Negative Eyes: Positive: Negative ENT: Positive: Ear Ache, Nasal Discharge, Sinus Congestion, Sinus Pain/ Tenderness Respiratory: Positive: Cough Cardiovascular: Positive: Negative Gastrointestinal: Positive: Negative Genitourinary: Positive: Negative Motor: Positive: Negative Neurovascular: Positive: Negative Musculoskeletal: Positive: Negative Neurological: Positive: Negative Psychological: Positive: Negative Physical Exam Triage Information Reviewed: Yes Appearance: Well-Appearing, No Pain Distress, Well-Nourished Vital Signs: Initial Vital Signs Temp 98.8 F 08/16/19 10:24 Pulse 44 08/16/19 10:24 Resp 18 08/16/19 10:24 BP 107/72 08/16/19 10:24 Pulse Ox 100 08/16/19 10:24 Vital Signs Reviewed: Yes Eyes: Positive: Conjunctiva Clear ENT: Positive: Pharynx normal, Nasal congestion, TM bulging - bilat R>L, Sinus tenderness. Negative: Hearing grossly normal, Nasal drainage, Tonsillar swelling, Tonsillar exudate, Trismus, Muffled voice, Hoarse voice Neck: Positive: Supple, Nontender, No Lymphadenopathy Respiratory: Positive: Lungs clear, Normal breath sounds, No respiratory distress, No accessory muscle use Throat Pain/Nasal Course/Dx - Differential Dx/Diagnosis Provider Diagnosis: Sinusitis, Bilateral serous otitis media Discharge ED - Sign-Out/Discharge Documenting (check all that apply): Patient Departure All imaging exams completed and their final reports reviewed: No Studies - Discharge Plan Condition: Stable Disposition: HOME Prescriptions: Amoxicillin PO (*) [Amoxicillin 875 MG (*)] 875 mg PO BID #14 tab Fluticasone NASAL SPRAY 50MCG* [Flonase NASAL SPRAY 50MCG*] 2 spray BOTH NARES BID #1 btl Patient Education Materials: Sinusitis (ED), Serous Otitis Media (ED) Referrals: Negin Bales MD [Primary Care Provider] - Additional Instructions: saline nasal spray 2 sprays each nostril twice daily use flonase about 5 minutes later - Billing Disposition and Condition Condition: STABLE Disposition: Home
== END 2019-08-16 10:53 | disposition home or self-care (01) ==
LOC: UCEAST 10:20
DX: J32.9 Chronic sinusitis, unspecified (principal); H65.93 Unspecified nonsuppurative otitis media, bilateral; F17.210 Nicotine dependence, cigarettes, uncomplicated; Z88.0 Allergy status to penicillin
CPT/HCPCS: 99212; G0463

== ENCOUNTER 2019-11-02 20:09 | Emergency (ER) | payer BC ==
--- NOTE | 2019-11-02 20:26 | UC ---
Throat Pain/Nasal Noble HPI - HPI Summary HPI Summary: Patient is a 34yo female presenting with "raging sore throat" since this morning and R ear pain x3 days. Patient denies drainage or hearing loss. Denies L ear symptoms. Denies nasal congestion. Notes low grade fever and chills earlier. Denies cough. - History of Current Complaint Stated Complaint: SORE THROAT Hx Obtained From: Patient Hx Last Menstrual Period: 07/18/19 - Allergies/Home Medications Allergies/Adverse Reactions: Allergies Allergy/AdvReac Type Severity Reaction Status Date / Time Penicillins AdvReac Mild GI Upset Verified 11/02/19 20:32 Home Medications: Home Medications Ibuprofen TAB* [Motrin TAB* 400 MG] 400 mg PO Q6H PRN 11/02/19 [History Confirmed 11/02/19] PMH/Surg Hx/FS Hx/Imm Hx - Surgical History Surgical History: Yes Surgery Procedure, Year, and Place: 2015 - SURGERY FOR SKIN CANCER REMOVAL ON RIGHT LEG - Family History Known Family History: Positive: Hypertension, Other - neg: family breast [place] - Social History Alcohol Use: Rare Substance Use Type: None Substance Use Comment - Amount & Last Used: 16 Smoking Status (MU): Light Every Day Tobacco Smoker Type: Cigarettes Amount Used/How Often: QUIT 6 MONTHS AGO Length of Time of Smoking/Using Tobacco: 16 years Have You Smoked in the Last Year: Yes - Immunization History Most Recent Influenza Vaccination: Review of Systems All Other Systems Reviewed And Are Negative: Yes Constitutional: Positive: Fever - "low grade", Chills ENT: Positive: Sore Throat, Ear Ache - R. Negative: Sinus Congestion Respiratory: Positive: Negative Cardiovascular: Positive: Negative Gastrointestinal: Positive: Negative Musculoskeletal: Positive: Myalgia Neurological: Positive: Headache Physical Exam Triage Information Reviewed: Yes Appearance: Well-Appearing, No Pain Distress, Well-Nourished Vital Signs: Vital Signs (72 hours) 11/02/19 20:26 Temperature 98.1 F Pulse Rate 76 Respiratory 16 Rate Blood Pressure 106/80 (mmHg) O2 Sat by Pulse 100 Oximetry Vital Signs Reviewed: Yes Eyes: Positive: Conjunctiva Clear ENT: Positive: Hearing grossly normal, Pharyngeal erythema, TMs normal - TMs intact with normal light reflex and landmarks b/l, Tonsillar swelling, Tonsillar exudate, Uvula midline, Other - Right EAC edematous, erythematous. pain with manipulation of auricle. Negative: Nasal congestion Neck exam: Normal Neck: Positive: Supple, Nontender, No Lymphadenopathy Respiratory Exam: Normal Respiratory: Positive: Lungs clear, Normal breath sounds, No respiratory distress Cardiovascular Exam: Normal Cardiovascular: Positive: RRR Neurological: Positive: Alert Psychological: Positive: Age Appropriate Behavior Throat Pain/Nasal Course/Dx - Course Course Of Treatment: I treated patient with otic antibiotic drops for AOE and with keflex for strep throat. Patient states no issue with cephalosporins in the past. Instructed to follow up with pcp if symptoms persist. Patient voiced understanding and agreed with treatment plan. - Differential Dx/Diagnosis Provider Diagnosis: Strep pharyngitis, Acute otitis externa of right ear Discharge ED - Sign-Out/Discharge Documenting (check all that apply): Patient Departure All imaging exams completed and their final reports reviewed: No Studies - Discharge Plan Condition: Stable Disposition: HOME Prescriptions: Cephalexin CAP* [Keflex CAP*] 500 mg PO BID #19 cap Neomyc/Polym/HC 1% OTIC SUSP* [Cortisporin Otic Susp 1%*] 4 drop RIGHT EAR TID # 1 btl Patient Education Materials: Otitis Externa (ED), Strep Throat (ED) Referrals: Negin Bales MD [Primary Care Provider] - If Needed Additional Instructions: As discussed, you tested positive for strep throat today. Take Keflex as prescribed for the treatment of strep throat. Use the antibiotic ear drops as directed for treatment of your outer ear infection. You may take ibuprofen and/or tylenol as directed for fever and pain relief. You may use over the counter throat sprays or lozenges for symptomatic relief. Get plenty of rest and increase fluid intake. Follow up with your primary care provider if symptoms do not resolve within 7- 10 days. - Billing Disposition and Condition Condition: STABLE Disposition: Home
[2019-11-02 20:32] VITALS: BP 106/80
[2019-11-02] MEDS ORDERED: Cephalexin CAP* 500 MG PO ONE (20:50)
[2019-11-02] MEDS ORDERED: Neomyc/Polym/HC 1% OTIC SUSP* **OTIC RIGHT EAR ONE (20:51)
== END 2019-11-02 21:08 | disposition home or self-care (01) ==
LOC: UCEAST 20:09
DX: J02.0 Streptococcal pharyngitis (principal); H60.501 Unspecified acute noninfective otitis externa, right ear; F17.210 Nicotine dependence, cigarettes, uncomplicated; Z88.0 Allergy status to penicillin; Z85.828 Personal history of other malignant neoplasm of skin
CPT/HCPCS: 87651; 99212; A9270-GY; G0463

== ENCOUNTER 2019-11-12 09:34 | Emergency (ER) | payer BC, OTHER ==
[2019-11-12 09:48] VITALS: BP 117/80
--- NOTE | 2019-11-12 10:17 | UC ---
Hand/Wrist HPI - HPI Summary HPI Summary: 34 yo female presents with right wrist injury. She tells me that 2 days ago she was at work and went to open a heavy door and another co-worker opened the door from the other side and pt's right thumb/wrist "jammed". 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 Today pain has persisted. She has used a thumb brace with little relief. She is right handed. - History Of Current Complaint Chief Complaint: UCUpperExtremity Stated Complaint: WRIST INJURY Time Seen by Provider: 11/12/19 10:10 Hx Obtained From: Patient Hx Last Menstrual Period: 10/22/19 Onset/Duration: Sudden Onset Severity Initially: Moderate Severity Currently: Moderate Pain Intensity: 7 Pain Scale Used: 0-10 Numeric - Allergies/Home Medications Allergies/Adverse Reactions: Allergies Allergy/AdvReac Type Severity Reaction Status Date / Time Penicillins AdvReac Mild GI Upset Verified 11/12/19 09:37 Home Medications: Home Medications Cephalexin CAP* [Keflex 500 CAP*] 1 tab PO BID 11/12/19 [History Confirmed 11/12] PMH/Surg Hx/FS Hx/Imm Hx - Additional Past Medical History Additional PMH: None - Surgical History Surgical History: Yes Surgery Procedure, Year, and Place: 2015 - SURGERY FOR SKIN CANCER REMOVAL ON RIGHT LEG - Family History Known Family History: Positive: Hypertension, Other - neg: family breast [place] - Social History Occupation: Employed Full-time Lives: With Family Alcohol Use: Rare Substance Use Type: None Smoking Status (MU): Light Every Day Tobacco Smoker Type: Cigarettes Amount Used/How Often: QUIT 6 MONTHS AGO Length of Time of Smoking/Using Tobacco: 16 years Have You Smoked in the Last Year: Yes - Immunization History Most Recent Influenza Vaccination: Review of Systems All Other Systems Reviewed And Are Negative: No Constitutional: Positive: Negative Skin: Positive: Negative Respiratory: Positive: Negative Cardiovascular: Positive: Negative Neurovascular: Positive: Negative Musculoskeletal: Positive: Other: - Right wrist pain Neurological: Positive: Negative Psychological: Positive: Negative Physical Exam - Summary Physical Exam Summary: GENERAL: NAD. WDWN. No pain distress. SKIN: No rashes, sores, lesions, or open wounds. CHEST: No accessory muscle use. Breathing comfortably and in no distress. CV: Pulses intact radial and ulnar. Cap refill <2seconds MSK: RIGHT WRIST: Moderate ttp about volar aspect of distal radius and base of thumb. FROM. 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 Positive palmira. No edema or obvious bony deformities. No snuffbox tenderness. NEURO: Alert. Sensations intact hand and all fingers. PSYCH: Age appropriate behavior. Triage Information Reviewed: Yes Vital Signs: Initial Vital Signs Temp 98.4 F 11/12/19 09:45 Pulse 78 11/12/19 09:45 Resp 15 11/12/19 09:45 BP 117/80 11/12/19 09:45 Pulse Ox 100 11/12/19 09:45 Vital Signs Reviewed: Yes Diagnostics - Radiology Wrist XR Radiology Interpretation Completed By: Radiologist Summary of Radiographic Findings: IMPRESSION: NO ACUTE OSSEOUS INJURY. IF SYMPTOMS PERSIST, RECOMMEND REPEAT IMAGING. Hand/Wrist Course/Dx - Course Course Of Treatment: XR as above. Suspect strain of right wrist/thumb. Pt placed in a thumb spica splint and advised to RICE and f/u with Occ Med if symptoms do not improve within 3-5 days. - Differential Dx/Diagnosis Provider Diagnosis: Right wrist pain Discharge ED - Sign-Out/Discharge Documenting (check all that apply): Patient Departure All imaging exams completed and their final reports reviewed: Yes - Discharge Plan Condition: Stable Disposition: HOME Patient Education Materials: Wrist Sprain (ED) Forms: *Work Release Referrals: Negin Bales MD [Primary Care Provider] - Dash Espinal MD [Medical Doctor] - As Soon As Possible Additional Instructions: If you develop a fever, shortness of breath, chest pain, new or worsening symptoms - please call your PCP or go to the ED immediately. 1) The X-ray of your wrist today was normal 2) I suspect you have a tendon/ligament injury that should improve with rest and time. I recommend that you use the thumb brace as much as possible 3) May take tylenol/ibuprofen as directed for discomfort 4) If your symptoms do not improve within 3-5 days, please call Dr. Espinal of Occupational Medicine at the number below to schedule an appointment for further evaluation - Billing Disposition and Condition Condition: STABLE Disposition: Home - Attestation Statements Provider Attestation: This patient was not seen by me. I was available for consult. Chart reviewed. SANDRA
== END 2019-11-12 10:57 | disposition home or self-care (01) ==
LOC: UCEAST 09:34
DX: M25.531 Pain in right wrist (principal); W23.0XXA Caught, crushed, jammed, or pinched between moving objects, initial encounter; Y92.9 Unspecified place or not applicable; Y99.0 Civilian activity done for income or pay; Z88.0 Allergy status to penicillin; F17.210 Nicotine dependence, cigarettes, uncomplicated
CPT/HCPCS: 99212; G0463